=== PATIENT | male | born 1995 | race Hispanic/Latino ===

== ENCOUNTER 2019-08-14 18:56 | Emergency (ER) | payer MEDICAID, OTHER ==
[2019-08-14] MEDS ORDERED: ORPHENADRINE CITRATE 30 MG/ML ML ONE (19:34)
[2019-08-14] MEDS ORDERED: KETOROLAC TROMETHAMINE 60 MG/2 ML VIAL ONE (19:35)
[2019-08-14] MEDS ORDERED: TETANUS/DIPHTHERIA TOXOID [ADULT] 0.5 ML VIAL IM ONE (19:35)
== END 2019-08-14 20:45 | disposition home or self-care (01) ==
LOC: EDH 18:56
DX: S00.83XA Contusion of other part of head, initial encounter (principal); S40.012A Contusion of left shoulder, initial encounter; V86.59XA Driver of other special all-terrain or other off-road motor vehicle injured in nontraffic accident, initial encounter; Y93.89 Activity, other specified; Y92.89 Other specified places as the place of occurrence of the external cause; Y99.8 Other external cause status
CPT/HCPCS: 73030; 90471; 90714; 96372 ×2; 99284; J1885; J2360